=== PATIENT | female | born 1990 | race Caucasian/White ===

== ENCOUNTER 2017-02-20 22:52 | Emergency (ER) | payer BC ==
[2017-02-20 23:55] LABS: BASOPHILS 0.3 % (0-2); EOSINOPHILS 5.2 % (0-7); HEMATOCRIT 41.6 % (36.0-48.0); HEMOGLOBIN 13.8 g/dL (12-16); IMMATURE GRANULOCYTES 0.5 % (0-5); LYMPHOCYTES 26.8 % (15-50); MCH 30.8 pg (26.0-34.0); MCHC 33.2 g/dL (31.0-37.0); MCV 92.9 fL (80.0-100.0); MEAN PLATELET VOLUME 10.5 fL (7.4-10.4); MONOCYTES 4.8 % (2-11); NEUTROPHILS 62.4 % (40-80); PLATELET COUNT 278 10x3/uL (130-400); RBC 4.48 10x6/uL (4.00-5.40); RDW 12.3 % (11.5-14.5); WBC 7.3 10x3/uL (4.8-10.8)
[2017-02-21 00:03] LABS: CALC OSMOLALITY 273 mosm/kg (275-300); CALCIUM 9.1 mg/dL (8.5-10.1); CARBON DIOXIDE 33.1 mmol/L (21.0-32.0); CHLORIDE - SERUM 100 mmol/L (98-107); CREATININE - SERUM 0.9 mg/dL (0.6-1.3); GLUCOSE 90 mg/dL (74-106); SODIUM 138 mmol/L (136-145); UREA NITROGEN 7 mg/dL (7-18); eGFR NON AFRICAN AMERICAN 81 mL/min (90-120)
== END 2017-02-21 03:31 | disposition home or self-care (01) ==
LOC: D.ER 22:52
PROVIDERS: Family Medicine
DX: G89.18 Other acute postprocedural pain (principal); I10 Essential (primary) hypertension

== ENCOUNTER 2019-05-17 18:25 | Emergency (ER) | payer MEDICAID ==
[~2019-05-17] VITALS: Ht 162.6 cm; Wt 113.6 kg
[2019-05-17 18:30] VITALS: BP 143/86; Ht 162.6 cm; Wt 113.6 kg
[2019-05-17] MEDS ORDERED: ANASTROZOLE (18:32)
[2019-05-17] MEDS ORDERED: GLUCOPHAGE500 MG PO (18:32)
[2019-05-17] MEDS ORDERED: SYNTHROID25 MCG PO (18:33)
== END 2019-05-17 20:15 | disposition left against medical advice (07) ==
LOC: D.ER 18:25
DX: R10.9 Unspecified abdominal pain (principal)